=== PATIENT | female | born 1980 | race Two or more races ===

== ENCOUNTER 2017-10-18 10:07 | Outpatient (AMBR) | payer MEDICAID, SELFPAY ==
--- NOTE | 2017-10-18 11:09 | PT.ODAYNRPT ---
PT Outpatient Daily Note Date of Service: October 18, 2017 OP Daily Note Pediatric or Adult Patient: Adult PT >13 Visit Reasons: left shoulder Outpatient Physical Therapy Treatment Date: 10/18/17 Subjective: I have pain on my L shoulder. Objective: Pls see FS Assessment: patient has pain on movement during therapy session. Patient were given 1lb DB with only 90degrees tolerance. Restbreaks given as needed. Patient were given arm bike to promote joint mobility with less resistance. Plan: to continue POC toward goals. Pain Present Currently: Yes Length of Time (minutes) of Treatment: 30 Minutes Office Procedures PT Procedures PT Date of Service: 10/18/17 Therapeutic Exercise 30 minutes: Yes
== END 2017-11-09 23:59 | disposition home or self-care (01) ==
PROVIDERS: Family Provider Family Medicine; PCP Physician Assistant Medical; Referring Provider Physician Assistant Medical; Visit Provider Physician Assistant Medical
DX: I10 Essential (primary) hypertension (principal)
CPT/HCPCS: 97110

== ENCOUNTER 2024-04-01 16:37 | Emergency (ER) | payer MEDICAID, SELFPAY ==
[2024-04-01 16:56] VITALS: BP 153/89; PULSE 70; RESP 18; TEMP 37.2; O2SAT 98; BMI 47.0
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
--- NOTE | 2024-04-01 17:18 | PD.EDRME ---
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
[2024-04-01 18:31] LABS: Basophils # (Auto) 0.1 Thou/mm3 (0.0-0.2); Basophils % (Auto) 1 % (0-2.5); Eosinophils # (Auto) 0.2 Thou/mm3 (0.0-0.5); Eosinophils % (Auto) 3 % (0-10); Hematocrit 40.3 % (36.0-46.0); Hemoglobin 13.3 g/dL (12.0-16.0); Immature Granulocytes % (Auto) 0 % (0-0); Immature Granulocytes Auto 0.02 Thou/mm3 (0.00-0.00); Lymphocytes # (Auto) 1.9 Thou/mm3 (1.0-4.8); Lymphocytes % (Auto) 23 % (10-50); Mean Corpuscular Hemoglobin 28.7 pg (25.0-35.0); Mean Corpuscular Volume 87 fL (80-100); Monocytes # (Auto) 0.6 Thou/mm3 (0.0-0.8); Monocytes % (Auto) 7 % (0-12); Neutrophils # (Auto) 5.4 Thou/mm3 (1.8-7.7); Neutrophils % (Auto) 67 % (37-80); Nucleated Red Blood Cell % 0 /100 WBC (0); Platelet Count 249 Thou/mm3 (140-440); RDW Standard Deviation 40.8 fL (36.4-46.3); Red Blood Count 4.64 Miln/mm3 (4.00-5.20); White Blood Count 8.2 Thou/mm3 (3.6-11.0)
[2024-04-01 18:37] LABS: Alanine Aminotransferase 13 U/L (10-49); Albumin, Serum 4.3 gm/dL (3.5-5.0); Albumin/Globulin Ratio 1.3 (1.2-2.2); Alkaline Phosphatase 68 U/L (46-116); Anion Gap 7 (7-16); Aspartate Amino Transferase 12 U/L (0-34); BUN/Creatinine Ratio 15 Ratio (12-20); Bilirubin,Total 0.4 mg/dL (0.3-1.2); Blood Urea Nitrogen 12 mg/dL (9-23); Calcium 9.2 mg/dL (8.3-10.6); Calcium (Corrected) 9.2 mg/dL (8.5-10.1); Carbon Dioxide 27.2 mMol/L (20.0-31.0); Chloride 105 mMol/L (98-107); Creatinine (Component) 0.8 mg/dL (0.6-1.3); Estimated Creatinine Clearance 152.9 mL/min (>60); Globulin 3.3 gm/dL (2.3-3.5); Glucose 90 mg/dL (74-106); Osmolality,Calculated 277 (275-295); Sodium 139 mMol/L (136-145); Total Protein 7.6 gm/dL (5.7-8.2); eGFR > 60 See Note
[2024-04-01 18:56] LABS: Collection Type, Urine Clean Catch
[2024-04-01 19:13] LABS: Bilirubin,Urine Negative (Negative); Blood,Urine 3+ (Negative); Color,Urine Lt-Yellow (Lt Yel-Yel); Culture Indicated,Urine Not Indicated; Glucose, Urine Negative (Negative); Ketones,Urine Negative (Negative); Leukocyte Esterase,Urine Negative (Negative); Nitrite,Urine Negative (Negative); PH,Urine 6.5 (5.0-7.0); Protein,Urine Trace (Neg - Trace); RBC,Urine 1193 /hpf (0-3); Specific Gravity,Urine 1.025 (1.001-1.035); Squamous Epithelial Cell,Urine 4 /hpf (0-5); Urobilinogen,Urine Negative mg/dL (0.0-1.0); WBC,Urine 8 /hpf (0-5)
[2024-04-01 19:14] LABS: Clarity,Urine Hazy (Clear/Hazy)
[2024-04-01 19:16] LABS: HCG Qualitative,Urine Negative
[2024-04-01 19:23] LABS: Amphetamine/Methamp Scrn,U Negative (Negative); Barbiturate Screen,Urine Negative (Negative); Benzodiazepines Screen,Urine Negative (Negative); Benzoylecgonine Screen, Ur Negative (Negative); Fentanyl Screen,Urine Negative (Negative); Opiate Screen,Urine Negative (Negative); THC Screen,Urine Negative (Negative)
[2024-04-01 22:11] VITALS: BP 125/74; PULSE 69; RESP 18; TEMP 37.1; O2SAT 98
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
[2024-04-02] MEDS: ACETAMINOPHEN 325 MG TABLET 650 MG PO (02:48)
[2024-04-02] MEDS: LEVOFLOXACIN 250 MG TABLET 500 MG PO (02:48)
== END 2024-04-02 02:54 | disposition home or self-care (01) ==
PROVIDERS: Nurse Practitioner Primary Care; Emergency Provider Emergency Medicine
DX: J01.00 Acute maxillary sinusitis, unspecified (principal); J32.0 Chronic maxillary sinusitis
CPT/HCPCS: 36415; 70450; 80053; 80307; 81001; 81025; 85025; 99281; A9270

== ENCOUNTER → 2024-05-20 | Outpatient (CLI) | payer MEDICAID, SELFPAY ==
--- NOTE | 2024-05-20 11:30 | XR_ITS ---
Examination: Screening digital mammography, bilateral Computer aided detection 3-D breast Tomosynthesis, bilateral Date and time of exam: 05/20/2024, 11:41 AM Comparisons: Baseline exam Indications: Screening Technique: Nonmagnified MLO, CC views of the breasts to been obtained, reconstructed from 3-D Tomosynthesis images. R2 computer aided detection program utilized for evaluation of suspicious masses and/or abnormal calcifications. 3-D Tomosynthesis images obtained. Technologist: Findings: There are scattered areas of fibroglandular density. No evidence of abnormal masses or suspicious calcifications. Impression: BI-RADS category 1: Negative findings (within normal) Recommend 1 year follow-up mammogram
== END | disposition home or self-care (01) ==
PROVIDERS: Referring Provider Nurse Practitioner Family; Visit Provider Nurse Practitioner Family
DX: Z12.31 Encounter for screening mammogram for malignant neoplasm of breast (principal); R92.313 Mammographic fatty tissue density, bilateral breasts
CPT/HCPCS: 77063; 77067

== ENCOUNTER → 2025-01-27 | Outpatient (CLI) | payer MEDICAID, SELFPAY ==
--- NOTE | 2025-01-27 09:49 | XR_ITS ---
EXAMINATION: Thoracic spine 3 views TECHNIQUE: AP, lateral, coned lateral upper dorsal spine 3 views Date and time: January 27, 2025, 1045 hours INDICATIONS: Upper back pain beginning 2 months ago. FINDINGS: Satisfactory line midthoracic vertebral bodies on the lateral view No thoracic fracture Mild diffuse thoracic disc narrowing Mild thoracic spondylosis IMPRESSION: Mild diffuse thoracic degenerative disc disease
--- NOTE | 2025-01-27 09:49 | XR_ITS ---
EXAMINATION: PA lateral chest 2 views TECHNIQUE: Upright PA lateral chest 2 views Date and time: January 27 2025, 10:44 a.m. INDICATIONS: Chest pain beginning 2 months ago. FINDINGS: Normal heart size Lungs are clear. Moderate osteopenia IMPRESSION: No active disease
--- NOTE | 2025-01-27 09:49 | XR_ITS ---
EXAMINATION: Cervical spine 7 views TECHNIQUE: AP, lateral, standing lateral flexion, standing lateral extension, RPO, LPO, coned AP odontoid single view total 7 views Date and time: January 27, 2025, 1048 hours INDICATION: Neck pain beginning 2 months ago. FINDINGS: Straightening normal cervical lordosis Mildly reduced range of motion between flexion and extension No cervical fracture Intact odontoid Moderate degenerative disc disease C4-C5, C5-C6, C6-C7 with mild bilateral neuroforaminal stenosis IMPRESSION: Moderate degenerative disc disease C4-C5, C5-C6, C6-C7
== END | disposition home or self-care (01) ==
LOC: CDIM 09:30
PROVIDERS: PCP Nurse Practitioner Family; Referring Provider Nurse Practitioner Family; Visit Provider Nurse Practitioner Family
DX: R07.9 Chest pain, unspecified (principal); M51.34 Other intervertebral disc degeneration, thoracic region; M50.321 Other cervical disc degeneration at C4-C5 level
CPT/HCPCS: 71046; 72052; 72072